=== PATIENT | female | born 1965 | race Caucasian/White ===

== ENCOUNTER → 2018-06-29 | Outpatient (REF) | payer MEDICARE, OTHER | LOC: M SFHCLERA 17:29 | DX: J02.9 Acute pharyngitis, unspecified (principal); R30.0 Dysuria | CPT/HCPCS: 87086 ==

== ENCOUNTER → 2018-12-28 | Outpatient (REF) | payer MEDICARE ==
[~2018-12-28] MED LIST: ALLE180T33 PO; CEPH500C PO; COUM1TAB17 OR; COUM1TAB18 OR; HYDR-4571 PO; LEVO88TA3 PO; OMEP20CA3 PO; TRAM50TA2 PO; VICO5TAB OR
[2018-12-28 20:11] LABS: ALBUMIN 3.9 GM/DL (3.2-5.2); ALT/SGPT 60 U/L (12-78); BILIRUBIN,TOTAL 0.7 MG/DL (0.2-1.0); BLOOD UREA NITROGEN 14 MG/DL (7-18); CALCIUM LEVEL 9.3 MG/DL (8.5-10.1); CARBON DIOXIDE LEVEL 28 MEQ/L (21-32); CHLORIDE LEVEL 108 MEQ/L (98-107); CREATININE FOR GFR 0.98 MG/DL (0.55-1.30); GLOMERULAR FILTRATION RATE > 60.0 (>51); GLUCOSE, FASTING 83 MG/DL (70-100); POTASSIUM SERUM 4.9 MEQ/L (3.5-5.1); SODIUM LEVEL 142 MEQ/L (136-145); TOTAL PROTEIN 7.6 GM/DL (6.4-8.2)
[2018-12-28 20:13] LABS: BASO % 0.5 % (0.0-1.0); EOS # 0.1 10^3/uL (0.0-0.50); HEMATOCRIT 41.8 % (36.0-47.0); HEMOGLOBIN 14.2 g/dl (12.0-15.5); LYMPH # 2.1 10^3/uL (1.5-4.5); MEAN CORPUSCULAR HEMOGLOBIN 32.2 pg (27.0-33.0); MEAN CORPUSCULAR VOLUME 94.8 fl (80.0-96.0); MONO # 0.3 10^3/uL (0.0-0.8); MONO % 4.2 % (0.0-5.0); NEUTROPHILS # 3.5 10^3/uL (1.8-7.7); PLATELET COUNT, AUTOMATED 145 10^3/uL (150-450); RED BLOOD COUNT 4.41 10^6/uL (4.00-5.40)
[2019-01-01 00:08] LABS: LEAD BLOOD ADULT 2 ug/dL (0-4); Lyme Disease IgG Ab 18 kDa Ban Absent (.); Lyme Disease IgG Ab 23 kDa Ban Present (.); Lyme Disease IgG Ab 28 kDa Ban Absent (.); Lyme Disease IgG Ab 30 kDa Ban Absent (.); Lyme Disease IgG Ab 39 kDa Ban Absent (.); Lyme Disease IgG Ab 41 kDa Ban Absent (.); Lyme Disease IgG Ab 45 kDa Ban Absent (.); Lyme Disease IgG Ab 58 kDa Ban Absent (.); Lyme Disease IgG Ab 66 kDa Ban Absent (.); Lyme Disease IgG Ab 93 kDa Ban Absent (.); Lyme Disease IgG West Blot Int Negative (.); Lyme Disease IgM Ab 23 kDa Ban Present (.); Lyme Disease IgM Ab 39 kDa Ban Present (.); Lyme Disease IgM Ab 41 kDa Ban Present (.); Lyme Disease IgM Ab Quantitati 11.16 index (0.00-0.79); Lyme Disease IgM West Blot Int Positive (.)
== END ==
LOC: M SFHCLERA 15:57
PROVIDERS: ATTEND Physician Assistant
DX: R52 Pain, unspecified (principal); L51.9 Erythema multiforme, unspecified; R82.2 Biliuria
CPT/HCPCS: 80053; 81002; 83655; 85025; 86617; 87086; 87804; G0463

== ENCOUNTER → 2019-07-01 | Outpatient (CLI) | payer MEDICARE ==
[~2019-07-01] MED LIST changes: +OMEP-172 PO; -OMEP20CA3 PO
--- NOTE | 2019-07-01 13:13 | REP ---
MRI left knee without contrast: History: Pain in the left knee. No comparison imaging. Technique: Axial, coronal, and sagittal imaging planes are utilized. T1, proton density and T2-weighted scans were obtained with and without fat saturation. MRI findings: There are areas of subcortical cyst formation and mild marrow edema in the patella superiorly and inferiorly. 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 There is a large joint effusion. No significant Phillips's cyst. Patellar and quadriceps tendons appear intact. Anterior and posterior cruciate ligaments have an intact appearance. There is no evidence of medial or lateral collateral ligament disruption. No medial or lateral meniscal tear is seen. There is severe chondromalacia involving the medial femoral condyle with nearly full-thickness articular cartilage loss in the weightbearing portion. There is also moderate to severe articular cartilage irregularity and abnormal signal intensity on the tibial plateau articular cartilage. Mild chondromalacia changes are noted in lateral compartment. No other abnormality. 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 Large joint effusion. No evidence of meniscal tear. No ligament or tendon disruption. Electronically Signed by Russ Mancilla MD 07/01/2019 01:45 P
== END ==
LOC: M RAD 09:56
PROVIDERS: ATTEND Nurse Practitioner Family
DX: M25.462 Effusion, left knee (principal); M94.262 Chondromalacia, left knee

== ENCOUNTER 2019-07-15 19:07 | Emergency (ER) | payer MEDICARE, MEDICAID ==
[~2019-07-15] VITALS: Ht 170.2 cm; Wt 102.3 kg
[2019-07-15] MEDS ORDERED: PLAV1TAB2 PO (19:11)
[2019-07-15] MEDS ORDERED: KETOROLAC 60 MG/2 ML VIAL (J1885) IM ONE (20:30)
[2019-07-15] MEDS ORDERED: BACL10TA2 PO (21:26)
[2019-07-15 21:46] VITALS: BP 111/69
--- NOTE | 2019-07-16 07:53 | REP ---
Clinical: Trauma. Fall. Technique: AP and lateral (three views total) of the sacrum and coccyx. Findings: Sacrum and coccyx are intact and there is no evidence for acute fracture or dislocation/subluxation. The bilateral sacroiliac joints are symmetric and relatively age-appropriate. Generalized degenerative changes through the visualized lumbosacral spine and pelvis/hips noted. Impression: No acute fracture or dislocation. Electronically Signed by Carlos A Damon MD 07/16/2019 07:44 A
== END 2019-07-15 21:49 | disposition home or self-care (01) ==
LOC: M ED 19:07
DX: S30.0XXA Contusion of lower back and pelvis, initial encounter (principal); S29.012A Strain of muscle and tendon of back wall of thorax, initial encounter; W00.1XXA Fall from stairs and steps due to ice and snow, initial encounter; Y92.89 Other specified places as the place of occurrence of the external cause; E03.9 Hypothyroidism, unspecified; K21.9 Gastro-esophageal reflux disease without esophagitis; Z79.899 Other long term (current) drug therapy; Z79.890 Hormone replacement therapy
CPT/HCPCS: 72220; 96372; 99283; J1885

== ENCOUNTER → 2019-08-11 | Outpatient (REF) | payer MEDICARE, OTHER, MEDICAID ==
[~2019-08-11] MED LIST changes: +BACL10TA2 PO; -OMEP-172 PO; +OMEP1CAP73 PO; +PLAV1TAB2 PO
[2019-08-11 20:11] LABS: FREE T4 1.29 NG/DL (0.76-1.46); THYROID STIMULATING HORMONE 0.99 uIU/ML (0.358-3.740)
[2019-08-15 14:07] LABS: Lyme Disease IgG Ab 18 kDa Ban Absent (.); Lyme Disease IgG Ab 23 kDa Ban Present (.); Lyme Disease IgG Ab 28 kDa Ban Absent (.); Lyme Disease IgG Ab 30 kDa Ban Absent (.); Lyme Disease IgG Ab 39 kDa Ban Present (.); Lyme Disease IgG Ab 41 kDa Ban Present (.); Lyme Disease IgG Ab 45 kDa Ban Absent (.); Lyme Disease IgG Ab 58 kDa Ban Absent (.); Lyme Disease IgG Ab 66 kDa Ban Absent (.); Lyme Disease IgG Ab 93 kDa Ban Absent (.); Lyme Disease IgG West Blot Int Negative (.); Lyme Disease IgM Ab 23 kDa Ban Present (.); Lyme Disease IgM Ab 39 kDa Ban Absent (.); Lyme Disease IgM Ab 41 kDa Ban Absent (.); Lyme Disease IgM Ab Quantitati 2.96 index (0.00-0.79); Lyme Disease IgM West Blot Int Negative (.)
== END ==
LOC: M SFHCLERA 15:25
PROVIDERS: ATTEND Nurse Practitioner Family
DX: R76.8 Other specified abnormal immunological findings in serum (principal); E03.9 Hypothyroidism, unspecified

== ENCOUNTER → 2019-08-29 | Outpatient (CLI) | payer MEDICARE, MEDICAID ==
--- NOTE | 2019-08-29 13:47 | REP ---
Clinical: Lung screening. History smoking. Comparison: Chest CT dated 05/05/2007 Technique: Axial low-dose noncontrast images from the thoracic inlet to the upper abdomen using lung screening technique. Findings: The lung izaguirre are well-aerated. Minimal scattered scarring primarily noted at the posterior apices and medial right middle lobe as well as lung bases remain essentially stable compared to 2006. No consolidation, significant nodule or mass lesion is appreciated. No pleural effusion/reaction or pneumothorax. Tracheobronchial tree is patent. Mediastinum demonstrates mild atherosclerotic changes of the coronary arteries without cardiomegaly. Impression: Lung-RADS category I. No nodule or suspicious abnormality. Electronically Signed by Carlos A Damon MD 08/29/2019 01:38 P
== END ==
LOC: M RAD 12:58
PROVIDERS: ATTEND Nurse Practitioner Family
DX: Z72.0 Tobacco use (principal)

== ENCOUNTER → 2020-03-27 | Outpatient (REF) | payer MEDICARE, MEDICAID | LOC: M SFHCLUC 16:18 | PROVIDERS: ATTEND Physician Assistant | DX: R30.0 Dysuria (principal) | CPT/HCPCS: 81002; 87088; 87186; G0463 ==

== ENCOUNTER → 2020-07-05 | Outpatient (CLI) | payer SELFPAY | LOC: M LABSMTC 12:12 | PROVIDERS: ATTEND Pediatrics | DX: Z20.828 Contact with and (suspected) exposure to other viral communicable diseases (principal) ==

== ENCOUNTER → 2023-01-20 | Outpatient (CLI) | payer OTHER ==
[~2023-01-20] MED LIST changes: +CLOP75TA99 PO; -PLAV1TAB2 PO
== END ==
LOC: M RAD 14:26
PROVIDERS: ATTEND Student in an Organized Health Care Education/Training Program
DX: N83.202 Unspecified ovarian cyst, left side (principal)

== ENCOUNTER → 2023-11-15 | Outpatient (REF) | payer MEDICARE, MEDICAID | LOC: M LAB REF 15:55 | PROVIDERS: ATTEND Surgery | DX: D17.1 Benign lipomatous neoplasm of skin and subcutaneous tissue of trunk (principal) ==